=== PATIENT | female | born 1955 | race Caucasian/White ===

== ENCOUNTER → 2018-07-08 | Day surgery (SDC) | payer MEDICARE, MEDICAID ==
[~2018-07-08] MED LIST: ALEN70TA6 PO; CALC600T4 PO; CLON1TAB11 PO; ESCITALOPRAM OX20 MG PO; GABA300C18 PO; GEMF600T8 PO; INSU100V8 SQ; IV RINGERS,LACTATED 1000ML 1,000 ML IV SCH; KETOROLAC 30 MG/ML INJ FOR OR. INJ ONE; LEVO150T5 PO; LEVO5TAB2 PO; LIDOCAINE 2% PF 5 ML VIAL. ONE; MELA5TAB PO; MELO15TA23 PO; METF500T9 PO; METH500T7 PO; MIDAZOLAM HCL/PF 2 MG/2 ML VIAL. ONE; MONT10TA9 PO; OXYM20TA17 PO; PROPOFOL 20 ML IV ONE; RANI150T2 PO; TOPI100T8 PO; TOPI25TA7 PO; TOPI50TA8 PO
== END | disposition home or self-care (01) ==
LOC: SURG 06:30
PROVIDERS: ATTEND Internal Medicine Gastroenterology
DX: K29.50 Unspecified chronic gastritis without bleeding (principal); I10 Essential (primary) hypertension; F41.9 Anxiety disorder, unspecified; J44.9 Chronic obstructive pulmonary disease, unspecified; M19.90 Unspecified osteoarthritis, unspecified site; F32.9 Major depressive disorder, single episode, unspecified; E11.9 Type 2 diabetes mellitus without complications; M79.7 Fibromyalgia; E78.00 Pure hypercholesterolemia, unspecified; K21.9 Gastro-esophageal reflux disease without esophagitis; Z82.3 Family history of stroke; Z83.3 Family history of diabetes mellitus; Z82.49 Family history of ischemic heart disease and other diseases of the circulatory system; F17.210 Nicotine dependence, cigarettes, uncomplicated; Z72.89 Other problems related to lifestyle; Z79.899 Other long term (current) drug therapy; Z79.84 Long term (current) use of oral hypoglycemic drugs; Z90.49 Acquired absence of other specified parts of digestive tract; Z90.710 Acquired absence of both cervix and uterus; Z98.890 Other specified postprocedural states; Z96.642 Presence of left artificial hip joint; Z88.5 Allergy status to narcotic agent; Z88.1 Allergy status to other antibiotic agents; Z88.8 Allergy status to other drugs, medicaments and biological substances
CPT/HCPCS: 43235; J2001; J2250; J2704; J1885